=== PATIENT | female | born 1975 | race Caucasian/White ===

== ENCOUNTER 2017-06-02 19:35 | Emergency (ER) | payer SELFPAY ==
[~2017-06-02 19:35] MED LIST: ALBU8.5H8 IH
[2017-06-02 20:25] VITALS: BP 138/88
[2017-06-02] MEDS ORDERED: DiphenhydrAMINE HCL 25 MG CAPSULE PO ONE (20:30)
[2017-06-02] MEDS ORDERED: PredniSONE 20 MG TABLET PO ONE (20:30)
== END 2017-06-02 20:46 | disposition home or self-care (01) ==
LOC: EMS 19:36
DX: L25.9 Unspecified contact dermatitis, unspecified cause (principal); J45.909 Unspecified asthma, uncomplicated
CPT/HCPCS: 99283; J7512